=== PATIENT | male | born 1945 | race Caucasian/White ===

== ENCOUNTER 2017-01-11 11:22 | Emergency (ER) | payer OTHER ==
[2017-01-11 11:46] VITALS: RESP 18; TEMP 97.7
--- NOTE | 2017-01-11 12:25 | EDPHY ---
H & P Stated Complaint: RIGHT CALF PAIN FOR 3 DAYS, NO TRAUMA Time Seen by Provider: 01/11/17 11:26 HPI/ROS: CHIEF COMPLAINT: Calf pain HISTORY OF PRESENT ILLNESS: This is a 71-year-old male with a 2 day history of right calf pain. He injured his right knee 1 week ago while hiking. He was crossing a stream and twisted his right knee. He had medial knee pain and subsequent swelling. The pain was severe enough that he used crutches for few days last week. All of this has resolved. His right knee is now pain-free. Most of the swelling is gone; there is some residual bruising. However, he has developed right calf pain. He is not sure whether not his calf is swollen because his calves are all was asymmetric (following a left ankle fusion). He denies any recent immobilization or surgery. He has no family history of venous thromboembolism. He denies chest pain or shortness of breath. REVIEW OF SYSTEMS: A ten point review of systems was performed and is negative with the exception of the items mentioned in the HPI. He also describes some recent shoulder cramps. Past medical history: 1. Hypertension 2. Reactive airway disease--uses an inhaler p.r.n. Past surgical history: 1. Left ankle fusion 2. Repair of hiatal hernia Family history: Social history: General Appearance: Alert. Vital signs reviewed. Blood pressure 154/91. Respiratory: Lungs are clear to auscultation; no wheezes, rales, or rhonchi. Cardiovascular: Regular rate and rhythm; no murmur, rub, or gallop. Gastrointestinal: Abdomen is soft and nontender. Skin: Warm and dry, no rashes on exposed skin, normal color. Back: Nontender to palpation over the thoracolumbar spine. No CVAT. Extremities: Calves are asymmetric with the left being smaller than the right. Patient tells me that this is longstanding and is the result of his having had a left ankle fusion about 5 years ago. Right calf is nontender to palpation and compressible. There is old bruising of the medial aspect of the right knee. Small right knee effusion on exam. Full pain active range of motion of his right knee. Pulses: 2+ dorsalis pedis pulses bilaterally. Neurological: Alert and oriented. Moving all four extremities easily and equally. Sensation intact to light touch over lower extremities. Psychiatric: Normal affect. - Medical/Surgical History Hx Asthma: Yes Other PMH: HTN, ASTHMA, HERNIA REPAIR - Social History Smoking Status: Never smoked Constitutional: Initial Vital Signs Temperature (C) 36.5 C 01/11/17 11:44 Heart Rate 73 01/11/17 11:44 Respiratory Rate 18 01/11/17 11:44 Blood Pressure 154/91 H 01/11/17 11:44 O2 Sat (%) 96 01/11/17 11:44 O2 Delivery Mode Room Air Allergies/Adverse Reactions: No Known Allergies Allergy (Unverified 01/11/17 11:43) Home Medications: Medication Instructions Recorded Albuterol 01/11/17 Eye Drops 01/11/17 Losartan Potassium 01/11/17 Medical Decision Making - Diagnostics Imaging Results: Imaging Impressions Extremity Venous Study 01/11/17 11:42 Impression: 1. No evidence of deep vein thrombosis. 2. Small complex Gonzalez's cyst. Findings discussed with BART BARCENAS 01/11/2017 at 12:22. ED Course/Re-evaluation: Nothing on exam to suggest infection or cellulitis. He does not have knee pain or instability at this time. Ultrasound of the right leg was performed. It was reported to me by Dr. Urena. There is no DVT. There is a small Gonzalez's cyst. No evidence of rupture but it is certainly possible that he did rupture this earlier and had some fluid tracking down into his leg. Departure - Departure Disposition: Home, Routine, Self-Care Clinical Impression: Right calf pain Gonzalez's cyst of knee Qualifiers: Laterality: right Qualified Code(s): M71.21 - Synovial cyst of popliteal space [Gonzalez], right knee Condition: Good Instructions: Bakers Cyst (ED) Additional Instructions: I do not know that the Gonzalez's cyst is causing your pain today. However, there is no evidence of a blood clot in your right leg. I recommend symptomatic treatment with Tylenol and ibuprofen. Ice and elevation may also be helpful. If you develop pain behind her knee you might try a compression wrap. Let your doctor know if you are having pain behind the knee. Pain & Fever Control: We recommend Acetaminophen (Tylenol) and Ibuprofen (Motrin,Advil) for pain and fever control. When fever is high or pain severe, both drugs can be used at the same time, but at different intervals. Please note the time differences. Your dose is: Acetaminophen 650mg every 4 to 6 hours Ibuprofen 400mg every 8 hours with food OR Note: do not take Acetaminophen with Hydrocodone (Vicodin, Lortab) or Oycodone (Percocet). These medications also contain Acetaminophen. No more than 3000mg of Acetaminophen should be taken in 24 hours (for an adult). Referrals: Luis Jeong MD [Primary Care Provider] - As per Instructions
[2017-01-11 12:47] VITALS: BP 142/98; PULSE 75; O2SAT 95
== END 2017-01-11 12:47 | disposition home or self-care (01) ==
LOC: CED 11:22
DX: M71.21 Synovial cyst of popliteal space [Baker], right knee (principal); I10 Essential (primary) hypertension; J45.909 Unspecified asthma, uncomplicated
CPT/HCPCS: 93971-PO

== ENCOUNTER 2017-04-26 17:36 | Inpatient (IN) | payer OTHER ==
[2017-04-26] MEDS ORDERED: NS 1,000 ML IV ONE (17:39)
--- NOTE | 2017-04-26 17:47 | CPEKG ---
Heart Rate: 60 RR Interval: 1000 P-R Interval: 160 QRSD Interval: 82 QT Interval: 456 QTC Interval: 456 P [place]: 58 QRS [place]: 33 T Wave [place]: -3 EKG Severity - ABNORMAL ECG - EKG Impression: SINUS RHYTHM EKG Impression: PROBABLE INFERIOR INFARCT, AGE INDETERMINATE Electronically Signed By: Raciel Gutierrez 26-Apr-2017 18:51:36
[2017-04-26 17:52] LABS: PLATELET COUNT 243 10^3/uL (150-400)
[2017-04-26] MEDS ORDERED: ASPIRIN 81 MG CHEWABLE TAB PO ONE (17:59)
--- NOTE | 2017-04-26 18:15 | EDPHY ---
H & P Stated Complaint: syncopal episode, hit head, + LOC Time Seen by Provider: 04/26/17 17:45 HPI/ROS: This patient reports onset of nausea at home and an episode of syncope. Explains that while working at his computer he started feeling nauseous. He stood up to walk the living room and did not make it all the way to the couch instead having a syncopal episode and landing on the floor striking his head. His was in the kitchen and heard him fall running to his side he was initially unconscious and she estimates that he was unconscious for 30-60 seconds prior to awakening and regaining on normal mental status and short order. He reports resolution of his nausea. Patient's was able to walk come to their car and drive him here by private vehicle for further evaluation. He reports a 1/10 headache that is generalized from striking his head. He reports associated left lateral neck pain in the trapezius region the attributes to the fall as well. He states this is mild also in intensity. No other symptoms at this time. ROS: Constitutional: He felt well prior to the episode of nausea today. No recent fevers. No recent fatigue. HEENT: He denies any facial pain except for mild left zygoma pain. Musculoskeletal: No midline neck or back pain. No extremity injuries from the fall. Pulmonary: No shortness of breath. No coughing Cardiovascular: He did notice any heart palpitations prior to the episode of syncope. He reports no chest pain. He denies any recent calf swelling or leg pain. GI: No abdominal pain. Nausea has resolved. No vomiting. No diarrhea. : The patient reports mild difficulty passing urine chronically and suspects that he may have prostatic hypertrophy. Integumentary: No lacerations abrasions Neuro: No confusion. No focal numbness tingling or weakness except for mild tingling in the scalp with his head where he struck his head. Endocrine: No complaints Complete review of symptoms is otherwise negative. Source: Patient Exam Limitations: No limitations - Personal History Current Tetanus/Diphtheria Vaccine: Yes Current Tetanus Diphtheria and Acellular Pertussis (TDAP): Yes Tetanus Vaccine Date: < 10 years - Medical/Surgical History PMH: Hypertension Mild asthma Recent sinusitis - finished z-pack a few days ago w/ resolution of sx's Coronary artery disease risk factors: Father prematurely from a cardiac event, hypertension, unknown cholesterol status, believes he had a abnormal stress test within last year [facility]. Hx Asthma: Yes Hx Chronic Respiratory Disease: No Hx Diabetes: No Hx Cardiac Disease: Yes Hx Renal Disease: No Hx Cirrhosis: No Hx Alcoholism: No Hx HIV/AIDS: No Hx Splenectomy or Spleen Trauma: No Other PMH: HTN, ASTHMA, HERNIA REPAIR, glaucoma - Family History Significant Family History: Heart disease (Patient's father of a cardiac event at age 41. Patient was told was due to rheumatic heart disease.) - Social History Smoking Status: Never smoked Alcohol Use: Other (1-2 glasses of wine most nights.) Drug Use: None - Physical Exam Exam: General Appearance: Alert, no distress. Eyes: Pupils equal and round no pallor or injection. ENT, the patient has mild left parietal region tenderness with no underlying laceration or hematoma. Mouth: Atraumatic with no intraoral lacerations. No dental trauma. Mucous membranes moist. Mild left zygoma tenderness without deformity. Neck: No midline tenderness. He has mild left lateral trapezius tenderness. Respiratory: There are no retractions, lungs are clear to auscultation. Cardiovascular: Regular rate and rhythm. No murmur gallop or rub. No JVD. No peripheral edema. Gastrointestinal: Abdomen is soft and nontender, no masses, bowel sounds normal. Neurological: GCS 15. Cranial nerves 2-12 intact. No focal sensory or motor deficits are appreciated. Skin: Warm and dry, no rashes. Musculoskeletal: Neck is supple nontender. Extremities are symmetrical, full range of motion. Psychiatric: Mood and affect are normal. DIFFERENTIAL DIAGNOSIS: After history and physical exam differential diagnosis was considered for cardiac ischemic disease, dysrhythmia, sick sinus syndrome, dehydration, minor closed head injury, neck strain, Constitutional: Initial Vital Signs Temperature (C) 36.5 C 04/26/17 17:44 Heart Rate 69 04/26/17 17:44 Respiratory Rate 20 04/26/17 17:44 Blood Pressure 167/121 H 04/26/17 17:44 O2 Sat (%) 92 04/26/17 17:44 O2 Delivery Mode Nasal Cannula O2 (L/minute) 3 Allergies/Adverse Reactions: No Known Allergies Allergy (Verified 04/26/17 17:44) Home Medications: Medication Instructions Recorded Albuterol 01/11/17 Eye Drops 01/11/17 Losartan Potassium 01/11/17 Medical Decision Making - Diagnostics EKG Interpretation: 12 lead EKG performed at 5:45 p.m. indication syncope rule out dysrhythmia, mi or other Sinus rhythm at 60 Intervals: Normal throughout [place]: P of 50, QRS of 33, T of -3 ST segments: Patient has mild ST depression in leads 3 and AVF. Borderline Q-wave inferiorly Overall assessment sinus rhythm cannot rule out inferior ischemia or age indeterminate infarct. Repeat EKG performed at 6:27 p.m. indication rule out interval change sinus rhythm at 65 intervals: Normal axis: Normal ST segments : Unchanged ED Course/Re-evaluation: IV, monitor Normal saline bolus No chest pain or nausea while here. Discussion: 71-year-old male with history of nausea and syncope with subtle EKG abnormalities in inferior leads. Cannot rule out inferior ischemia or early infarct in this patient. He warrants admission for further observation and rule out. I counseled regarding this. While he did strike his head in the fall he does not have clinical evidence of intercerebral hemorrhage, skull fracture or mental status change currently. His neck discomfort is consistent with neck strain. No clinical evidence of bony injury or radiculopathy. At approximately 1904 the patient had a long pause on his rhythm strip (approx 10s.) followed by sinus bradycardia in the 40s resulting in a brief syncope while reclining in the bed. Pacer pads were placed and atropine to the bedside , but patient regained consciousness with heart rate initially in the 50s shortly thereafter. The episode then resolved without other medical intervention. A repeat EKG is ordered. Dr. Bro [facility] called about this time accepts the patient for transfer For the rest of the duration of his time in our emergency department the patient remained stable without further pauses or other ectopy. I also spoke with Dr. Delaney who requests the patient be NPO after midnight as he will likely require a pacemaker. Total bedside critical care time: 15 min - Data Points Laboratory Results: Laboratory Results 04/26/17 17:42 04/26/17 17:42 04/26/17 04/26/17 04/26/17 18:40 17:42 17:42 WBC 8.13 10^3/uL 10^3/uL (3.80-9.50) RBC 4.86 10^6/uL 10^6/uL (4.40-6.38) Hgb 14.8 g/dL g/dL (13.7-17.5) Hct 44.4 % % (40.0-51.0) MCV 91.4 fL fL (81.5-99.8) MCH 30.5 pg pg (27.9-34.1) MCHC 33.3 g/dL g/dL (32.4-36.7) RDW 12.4 % % (11.5-15.2) Plt Count 243 10^3/uL 10^3/uL (150-400) MPV 9.7 fL fL (8.7-11.7) Neut % (Auto) 66.2 % % (39.3-74.2) Lymph % (Auto) 21.2 % % (15.0-45.0) [place] % (Auto) 7.9 % % (4.5-13.0) Eos % (Auto) 3.0 % % (0.6-7.6) Baso % (Auto) 0.6 % % (0.3-1.7) Nucleat RBC Rel Count 0.0 % % (0.0-0.2) Absolute Neuts (auto) 5.39 10^3/uL 10^3/uL (1.70-6.50) Absolute Lymphs (auto) 1.72 10^3/uL 10^3/uL (1.00-3.00) Absolute Monos (auto) 0.64 10^3/uL 10^3/uL (0.30-0.80) Absolute Eos (auto) 0.24 10^3/uL 10^3/uL (0.03-0.40) Absolute Basos (auto) 0.05 10^3/uL 10^3/uL (0.02-0.10) Absolute Nucleated RBC 0.00 10^3/uL 10^3/uL (0-0.01) Immature Gran % 1.1 % % (0.0-1.1) Immature Gran # 0.09 10^3/uL 10^3/uL (0.00-0.10) Sodium 141 mEq/L mEq/L (135-145) Potassium 4.4 mEq/L mEq/L (3.5-5.2) Chloride 103 mEq/L mEq/L (97-110) Carbon Dioxide 26 mEq/l mEq/l (22-31) Anion Gap 12 mEq/L mEq/L (8-16) BUN 23 mg/dL mg/dL (7-23) Creatinine 1.1 mg/dL mg/dL (0.7-1.3) Estimated GFR > 60 Glucose 97 mg/dL mg/dL (70-100) Calcium 9.0 mg/dL mg/dL (8.5-10.4) Troponin I < 0.012 ng/mL ng/mL (0.000-0.034) Urine Color YELLOW Urine Appearance CLEAR Urine pH 6.0 (5.0-7.5) Ur Specific [place] 1.025 (1.002-1.030) Urine Protein NEGATIVE (NEGATIVE) Urine Ketones NEGATIVE (NEGATIVE) Urine Blood NEGATIVE (NEGATIVE) Urine Nitrate NEGATIVE (NEGATIVE) Urine Bilirubin NEGATIVE (NEGATIVE) Urine Urobilinogen 0.2 EU EU (0.2-1.0) Ur Leukocyte Esterase NEGATIVE (NEGATIVE) Urine Glucose NEGATIVE (NEGATIVE) Medications Given: Discontinued Medications Aspirin (Aspirin) 324 mg PO EDNOW ONE Stop: 04/26/17 18:00 Last Admin: 04/26/17 18:03 Dose: 324 mg Sodium Chloride (Ns) 1,000 mls @ 0 mls/hr IV EDNOW ONE; Wide Open PRN Reason: Protocol Stop: 04/26/17 17:40 Last Admin: 04/26/17 17:51 Dose: 1,000 mls Departure - Departure Disposition: [facility] Clinical Impression: EKG abnormality Minor head injury Qualifiers: Encounter type: initial encounter Qualified Code(s): S00.90XA - Unspecified superficial injury of unspecified part of head, initial encounter Neck muscle strain Qualifiers: Encounter type: initial encounter Qualified Code(s): S16.1XXA - Strain of muscle, fascia and tendon at neck level, initial encounter Syncope Qualifiers: Syncope type: unspecified Qualified Code(s): R55 - Syncope and collapse Clinical Impression: (Ruled Out): EKG abnormality (Q-T prolongation present at ) Condition: Fair
--- NOTE | 2017-04-26 18:28 | CPEKG ---
Heart Rate: 65 RR Interval: 923 P-R Interval: 172 QRSD Interval: 84 QT Interval: 452 QTC Interval: 470 P [place]: 49 QRS [place]: 18 T Wave [place]: -12 EKG Severity - ABNORMAL ECG - EKG Impression: SINUS RHYTHM EKG Impression: PROBABLE INFERIOR INFARCT, AGE INDETERMINATE Electronically Signed By: Raciel Gutierrez 26-Apr-2017 18:51:25
[2017-04-26] MEDS ORDERED: ONDANSETRON DISINTEGRATING 4 MG TAB PO PRN (22:35)
[2017-04-26] MEDS ORDERED: ACETAMINOPHEN 325 MG TAB PO PRN (22:35)
[2017-04-26] MEDS: ONDANSETRON 4 MG/2 ML VIAL IVP PRN (23:49)
--- NOTE | 2017-04-26 23:50 | CPEKG ---
Heart Rate: 63 RR Interval: 952 P-R Interval: 180 QRSD Interval: 84 QT Interval: 484 QTC Interval: 496 P [place]: 50 QRS [place]: 32 T Wave [place]: -5 EKG Severity - ABNORMAL ECG - EKG Impression: Sinus rhythm Electronically Signed By: Geoffrey Delaney 27-Apr-2017 07:27:35
--- NOTE | 2017-04-26 23:52 | PDGENHP ---
History and Physical - Chief Complaint Syncope - History of Present Illness 71 yo M w/ HTN presents after episode of syncope. He explains he was at home working on his computer when he began to feel nauseous. He stood up and then had a syncopal episode. His came to side and states he was unresponsive for 30-60 seconds. He denies any chest pain or shortness of breath preceding this episode. He recently finished a course of azithromycin for sinus infection but otherwise has been in his usual state of health. Once in the ED he was noted to have a 10 second sinus pause on the monitor and recurrent syncope. He did not require atropine or other interventions. At the time of my evaluation he is asymptomatic. History Information - Allergies/Home Medication List Allergies/Adverse Reactions: No Known Allergies Allergy (Verified 04/26/17 17:44) Home Medications: Albuterol 01/11/17 [Last Taken Unknown] Eye Drops 01/11/17 [Last Taken Unknown] Losartan Potassium 01/11/17 [Last Taken Unknown] I have personally reviewed and updated: family history, medical history - Past Medical History hypertension - Surgical History Reports: no pertinent surgical hx - Family History Positive for: cancer - Social History Smoking Status: Never smoked Alcohol Use: Other (1-2 glasses of wine most nights.) Drug Use: None Review of Systems Review of Systems: ROS: 10pt was reviewed & negative except for what was stated in HPI & below Physical Exam Physical Exam: Temp Pulse Resp BP Pulse Ox 36.4 C 76 13 163/87 H 96 04/26/17 22:15 04/26/17 22:15 04/26/17 22:15 04/26/17 22:15 04/26/17 22:15 O2 (L/minute) 2 Constitutional: no apparent distress, not in pain Eyes: PERRL, EOMI Ears, Nose, Mouth, Throat: moist mucous membranes, no oral mucosal ulcers Cardiovascular: regular rate and rhythym, no murmur, rub, or gallop Respiratory: no respiratory distress, no rales or rhonchi Genitourinary: no bladder fullness, no bladder tenderness Skin: warm, normal color Musculoskeletal: full muscle strength, no muscle tenderness Neurologic: AAOx3, CN II-XII Intact Psychiatric: interacting appropriately, not anxious Lab Data & Imaging Review 04/26/17 17:42 04/26/17 17:42 WBC 8.13 10^3/uL (3.80-9.50) 04/26/17 17:42 RBC 4.86 10^6/uL (4.40-6.38) 04/26/17 17:42 Hgb 14.8 g/dL (13.7-17.5) 04/26/17 17:42 Hct 44.4 % (40.0-51.0) 04/26/17 17:42 MCV 91.4 fL (81.5-99.8) 04/26/17 17:42 MCH 30.5 pg (27.9-34.1) 04/26/17 17:42 MCHC 33.3 g/dL (32.4-36.7) 04/26/17 17:42 RDW 12.4 % (11.5-15.2) 04/26/17 17:42 Plt Count 243 10^3/uL (150-400) 04/26/17 17:42 MPV 9.7 fL (8.7-11.7) 04/26/17 17:42 Neut % (Auto) 66.2 % (39.3-74.2) 04/26/17 17:42 Lymph % (Auto) 21.2 % (15.0-45.0) 04/26/17 17:42 [place] % (Auto) 7.9 % (4.5-13.0) 04/26/17 17:42 Eos % (Auto) 3.0 % (0.6-7.6) 04/26/17 17:42 Baso % (Auto) 0.6 % (0.3-1.7) 04/26/17 17:42 Nucleat RBC Rel Count 0.0 % (0.0-0.2) 04/26/17 17:42 Absolute Neuts (auto) 5.39 10^3/uL (1.70-6.50) 04/26/17 17:42 Absolute Lymphs (auto) 1.72 10^3/uL (1.00-3.00) 04/26/17 17:42 Absolute Monos (auto) 0.64 10^3/uL (0.30-0.80) 04/26/17 17:42 Absolute Eos (auto) 0.24 10^3/uL (0.03-0.40) 04/26/17 17:42 Absolute Basos (auto) 0.05 10^3/uL (0.02-0.10) 04/26/17 17:42 Absolute Nucleated RBC 0.00 10^3/uL (0-0.01) 04/26/17 17:42 Immature Gran % 1.1 % (0.0-1.1) 04/26/17 17:42 Immature Gran # 0.09 10^3/uL (0.00-0.10) 04/26/17 17:42 Sodium 141 mEq/L (135-145) 04/26/17 17:42 Potassium 4.4 mEq/L (3.5-5.2) 04/26/17 17:42 Chloride 103 mEq/L (97-110) 04/26/17 17:42 Carbon Dioxide 26 mEq/l (22-31) 04/26/17 17:42 Anion Gap 12 mEq/L (8-16) 04/26/17 17:42 BUN 23 mg/dL (7-23) 04/26/17 17:42 Creatinine 1.1 mg/dL (0.7-1.3) 04/26/17 17:42 Estimated GFR > 60 04/26/17 17:42 Glucose 97 mg/dL (70-100) 04/26/17 17:42 Calcium 9.0 mg/dL (8.5-10.4) 04/26/17 17:42 Troponin I < 0.012 ng/mL (0.000-0.034) 04/26/17 17:42 Urine Color YELLOW 04/26/17 18:40 Urine Appearance CLEAR 04/26/17 18:40 Urine pH 6.0 (5.0-7.5) 04/26/17 18:40 Ur Specific [place] 1.025 (1.002-1.030) 04/26/17 18:40 Urine Protein NEGATIVE (NEGATIVE) 04/26/17 18:40 Urine Ketones NEGATIVE (NEGATIVE) 04/26/17 18:40 Urine Blood NEGATIVE (NEGATIVE) 04/26/17 18:40 Urine Nitrate NEGATIVE (NEGATIVE) 04/26/17 18:40 Urine Bilirubin NEGATIVE (NEGATIVE) 04/26/17 18:40 Urine Urobilinogen 0.2 EU (0.2-1.0) 04/26/17 18:40 Ur Leukocyte Esterase NEGATIVE (NEGATIVE) 04/26/17 18:40 Urine Glucose NEGATIVE (NEGATIVE) 04/26/17 18:40 Visualized and Interpreted EKG results: Yes EKG Interpretation: Positive for: normal sinsus rhythm, other (Inferior Q waves) Assessment & Plan Assessment: 71 yo M w/ hx of HTN presents with episode of syncope likely from bradyarrhythmia. Plan: 1. Syncope - Most likely 2/2 bradyarrhythmia. 10 second sinus pause noted on the monitor while in the ED with recurrent symptoms. Patient is currently asymptomatic and hemodynamically stable. Initial ischemic work-up unremarkable. He does have inferior Q waves on his ECG but no prior documented history of NH. - Trend cardiac enzymes, monitor on telemetry - Echocardiogram ordered - Cardiology consult placed, NPO @ [place] for possible pacemaker tomorrow 2. Hypertension - On Losartan as an outpatient. Diet - NPO @ [place] Code - Full PPx - SCDs Dispo - Admit to SDU under observation status
[2017-04-27] MEDS ORDERED: ATROPINE SULFATE 1 MG/10 ML SYR ONE (00:06)
[2017-04-27] MEDS ORDERED: ATROPINE SULFATE 1 MG/ML VIAL IVP ONE (01:00)
[2017-04-27 05:13] LABS: PLATELET COUNT 224 10^3/uL (150-400)
[2017-04-27] MEDS: ONDANSETRON 4 MG/2 ML VIAL IVP PRN (06:44)
[2017-04-27] MEDS ORDERED: BACITRACIN IRRIGATION/NS 50,000 UNITS/1,000 ML BTL IRR ONE ×2 (06:45→10:00)
[2017-04-27] MEDS ORDERED: BUPIVACAINE 0.5% 30 ML SDV ONE ×2 (06:45→09:52)
[2017-04-27] MEDS ORDERED: LIDOCAINE 1% 300 MG/30 ML SDV ONE ×2 (06:45→09:52)
[2017-04-27] MEDS ORDERED: IOPAMIDOL (ISOVUE-300) 100 ML BTL ONE (06:45)
[2017-04-27] MEDS ORDERED: ceFAZolin 2 GM/SWFI 2 GM/20 ML SYR IVP ONE (07:00)
--- NOTE | 2017-04-27 07:01 | PDPROPOC ---
Sedation Plan of Care Sedation Plan of Care: vital signs stable, mental status noted, patient educated of risks, benefits, alternatives, patient can tolerate sedation ASA Classification: ASA 2 Planned drugs: fentanyl, midazolam Mallampati Score: Class 2 Mallampati Reference Image: Patient passed 3-3-2 rule?: Yes
--- NOTE | 2017-04-27 07:02 | PDHPUP ---
History & Physical Update H&P update statement: This history and physical update is based on an assessment of the patient which was completed after admission or registration (within 24 hours), but prior to the surgery/procedure. H&P update: H&P reviewed & patient examined, no change in patient's condition since H&P completed (Risks of PM implant reviewed with patient and . ECG, echo, labs do not suggest acute [place]. )
--- NOTE | 2017-04-27 07:17 | PDCARCONS ---
Cardiology Consult Reason for Consult: Syncope Chief Complaint: Syncope Requesting Physician: Hospitalist team and emergency department physician History of Present Illness: 71-year-old male who presented with an episode of syncope at home yesterday. He was in [facility] and had 10 seconds of sinus arrest. He was transferred to [facility], and around midnight at 2 further episodes of sinus arrest. Atropine, low-dose dopamine and transcutaneous pacing was initiated and he has not had any further pauses. Throughout these episodes, he denies any episodes of chest discomfort and has remained hemodynamically stable in between episodes of syncope and sinus arrest. He feels nauseous prior to and after episodes of syncope followed by bradycardia and sinus arrest. History Information - Allergies/Home Medication List Allergies/Adverse Reactions: No Known Allergies Allergy (Verified 04/26/17 17:44) Home Medications: Albuterol 01/11/17 [Last Taken Unknown] Eye Drops 01/11/17 [Last Taken Unknown] Losartan Potassium 01/11/17 [Last Taken Unknown] I have personally reviewed and updated: family history, medical history, social history Past Medical History: Hypertension, glaucoma, BPH - Social History Smoking Status: Never smoked Alcohol Use: Other (1-2 glasses of wine most nights.) Drug Use: None Physical Exam Physical Exam: Temp Pulse Resp BP Pulse Ox 36.6 C 73 15 151/77 H 96 04/27/17 06:30 04/27/17 06:30 04/27/17 06:30 04/27/17 06:30 04/27/17 06:30 O2 (L/minute) 3 Constitutional: no apparent distress Eyes: PERRL, EOMI Ears, Nose, Mouth, Throat: moist mucous membranes, hearing normal Cardiovascular: regular rate and rhythym, no murmur, rub, or gallop Respiratory: no respiratory distress, no rales or rhonchi Gastrointestinal: normoactive bowel sounds, soft, non-tender abdomen Neurologic: AAOx3 Psychiatric: interacting appropriately, not anxious, not encephalopathic, thought process linear Lab and Imaging 04/27/17 05:00 04/27/17 05:00 WBC 9.62 10^3/uL (3.80-9.50) H 04/27/17 05:00 RBC 4.70 10^6/uL (4.40-6.38) 04/27/17 05:00 Hgb 14.7 g/dL (13.7-17.5) 04/27/17 05:00 Hct 42.7 % (40.0-51.0) 04/27/17 05:00 MCV 90.9 fL (81.5-99.8) 04/27/17 05:00 MCH 31.3 pg (27.9-34.1) 04/27/17 05:00 MCHC 34.4 g/dL (32.4-36.7) 04/27/17 05:00 RDW 12.3 % (11.5-15.2) 04/27/17 05:00 Plt Count 224 10^3/uL (150-400) 04/27/17 05:00 MPV 9.7 fL (8.7-11.7) 04/27/17 05:00 Neut % (Auto) 83.9 % (39.3-74.2) H 04/27/17 05:00 Lymph % (Auto) 9.5 % (15.0-45.0) L 04/27/17 05:00 [place] % (Auto) 4.7 % (4.5-13.0) 04/27/17 05:00 Eos % (Auto) 0.7 % (0.6-7.6) 04/27/17 05:00 Baso % (Auto) 0.3 % (0.3-1.7) 04/27/17 05:00 Nucleat RBC Rel Count 0.0 % (0.0-0.2) 04/27/17 05:00 Absolute Neuts (auto) 8.07 10^3/uL (1.70-6.50) H 04/27/17 05:00 Absolute Lymphs (auto) 0.91 10^3/uL (1.00-3.00) L 04/27/17 05:00 Absolute Monos (auto) 0.45 10^3/uL (0.30-0.80) 04/27/17 05:00 Absolute Eos (auto) 0.07 10^3/uL (0.03-0.40) 04/27/17 05:00 Absolute Basos (auto) 0.03 10^3/uL (0.02-0.10) 04/27/17 05:00 Absolute Nucleated RBC 0.00 10^3/uL (0-0.01) 04/27/17 05:00 Immature Gran % 0.9 % (0.0-1.1) 04/27/17 05:00 Immature Gran # 0.09 10^3/uL (0.00-0.10) 04/27/17 05:00 Sodium 142 mEq/L (135-145) 04/27/17 05:00 Potassium 4.3 mEq/L (3.5-5.2) 04/27/17 05:00 Chloride 109 mEq/L (97-110) 04/27/17 05:00 Carbon Dioxide 24 mEq/l (22-31) 04/27/17 05:00 Anion Gap 9 mEq/L (8-16) 04/27/17 05:00 BUN 19 mg/dL (7-23) 04/27/17 05:00 Creatinine 0.9 mg/dL (0.7-1.3) 04/27/17 05:00 Estimated GFR > 60 04/27/17 05:00 Glucose 119 mg/dL (70-100) H 04/27/17 05:00 Calcium 9.0 mg/dL (8.5-10.4) 04/27/17 05:00 Phosphorus 3.5 mg/dL (2.5-4.5) 04/27/17 05:00 Magnesium 2.0 mg/dL (1.6-2.3) 04/27/17 05:00 Troponin I < 0.012 ng/mL (0.000-0.034) 04/27/17 05:00 Urine Color YELLOW 04/26/17 18:40 Urine Appearance CLEAR 04/26/17 18:40 Urine pH 6.0 (5.0-7.5) 04/26/17 18:40 Ur Specific [place] 1.025 (1.002-1.030) 04/26/17 18:40 Urine Protein NEGATIVE (NEGATIVE) 04/26/17 18:40 Urine Ketones NEGATIVE (NEGATIVE) 04/26/17 18:40 Urine Blood NEGATIVE (NEGATIVE) 04/26/17 18:40 Urine Nitrate NEGATIVE (NEGATIVE) 04/26/17 18:40 Urine Bilirubin NEGATIVE (NEGATIVE) 04/26/17 18:40 Urine Urobilinogen 0.2 EU (0.2-1.0) 04/26/17 18:40 Ur Leukocyte Esterase NEGATIVE (NEGATIVE) 04/26/17 18:40 Urine Glucose NEGATIVE (NEGATIVE) 04/26/17 18:40 Visualized and Interpreted EKG results: Yes Telemetry: Sinus arrest with ventricular escape rhythm noted, this is preceded by bradycardia A/P Assessment: 1. Sinus arrest 2. Syncope 3. Hypertension Plan: 71-year-old male presenting with sinus arrest and syncope. Etiology of this is not clear. 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 He was managed with atropine, dopamine and transcutaneous pacing Permanent pacemaker implantation is indicated, this is class 1 indication. Risks of the procedure including cardiac perforation, pneumothorax, DVT, pulmonary embolism, infection, bleeding, long-term complications like SVC syndrome, infection, future need for generator change and lead extraction were discussed with him and his . He has normal EKG at baseline with normal LV function, troponin x2 has been negative, echocardiogram does not show any significant abnormalities. Pacemaker implantation is planned for this morning
[2017-04-27] MEDS ORDERED: fentaNYL 100 MCG/2 ML INJ ONE ×3 (07:19→13:24)
[2017-04-27] MEDS ORDERED: MIDAZOLAM 2 MG/2 ML VIAL ONE ×3 (07:19→13:24)
--- NOTE | 2017-04-27 07:27 | ECHO ---
[email or web address] [place] [id number] Main: [phone] Fax: Transthoracic Echocardiogram Name: ALENA NICHOLAS MR#: [id number] Study Date: 04/27/2017 Study Time: 06:34 AM Date of : 1945 Age: 71 year(s) Height: 188 cm (74 in.) Weight: 98.88 kg (218 lb.) BSA: 2.25 m2 Gender: Male Examination: Echo Indication: Eval LV function Image Quality: Contrast: Requested by: Sven De La Rosa BP: / Heart Rate: Rhythm: Indication: Eval LV function Procedure Staff T[employer] Buffer: Susu Damon Physician: Requesting Provider: Measurements: Chambers Valvular Assessment AV/MV Valvular Assessment TV/PV Normal Normal Normal Name Value Range Name Value Range Name Value Range Ao Kanwal (MM): 3.6 cm (2.2 cm-3.7 AV Vmax: 1.44 m/s (1 m/s-1.7 cm) m/s) EF Range: 65-70 % AV maxP mmHg ( - ) Continued Measurements: Chambers Name Value LADs: 2.8 cm Findings: Left Ventricle: Normal size left ventricle. The ejection fraction is estimated to be 65-70 %. Right Ventricle: Normal size right ventricle. Left Atrium: The left atrium is normal in size. Right Atrium: The right atrium is normal in size. Pulmonic Valve: Pulmonary valve not well visualized. Patient: ALENA NICHOLAS Study Date: 04/27/2017 Page 1 of 2 06:34 AM (No Signature Object) Patient: ALENA NICHOLAS Study Date: 04/27/2017 Page 2 of 2 06:34 AM [id number]
--- NOTE | 2017-04-27 08:16 | CPEKG ---
Heart Rate: 153 RR Interval: 392 QRSD Interval: 128 QTC Interval: 0 P [place]: 0 QRS [place]: 16 EKG Severity - ABNORMAL ECG - EKG Impression: Sinus arrest, ventricular escape followed by sinus beat Preliminary Awaiting MD Review
--- NOTE | 2017-04-27 08:22 | EPPROC ---
Electrophysiology Procedure Note: PROCEDURE PERFORMED: Implantation of an A/V Pacemaker Subclavian vein angiography Fluoroscopy INDICATION: Syncope x 4 Sinus arrest documented on telemetry x 3 PROCEDURE NOTE: Patient presented to the cardiac catheterization laboratory in a fasting, post absorptive state . EP RN administered sedation. The left infraclavicular area was prepped and draped in the usual sterile fashion. Lidocaine plus bupivacaine was used for local anesthesia. Left subclavian venography was performed by injection of iodinated contrast into the left antecubital vein. This was done to assure patency of the vein and also to assess for any anatomical aberrations. Using a combination of blunt and sharp dissection and electrocautery, the dissection was carried down to the prepectoral fascia. A pocket was made in this anatomical plane. All bleeding was controlled with electrocautery. The pocket was packed with gauze soaked in antibiotic solution. Fluoroscopy was utilized during the entire procedure for venous access and placement of the leads. Using a direct stick technique the left extrathoracic axillary vein was accessed with 2 sticks using the modified Seldinger technique. Placement of the guidewires into the venous system was confirmed by low-pressure blood return and also by visualizing the guidewires advancing into the inferior vena cava. A purse string suture was applied around the guidewires. Two #7 [place] sheaths were advanced under fluoroscopic guidance over the guidewire. An active fixation ventricular lead was advanced into the right ventricular apex and screwed in place. An active fixation atrial lead was advanced into the right atrial appendage and screwed in place. The peel away sheaths were removed. Pacing thresholds, sensing parameters and lead impedances were measured. There was no diaphragmatic stimulation at maximum output. The leads were sutured to the prepectoral fascia with 3 nonabsorbable sutures each. The pocket was again inspected for any bleeding. The leads were attached to the pacemaker securely. The pacemaker was inserted into the pocket and secured in place with a nonabsorbable suture. Fluoroscopy was performed in WEBSTER and BECKY planes to verify right-sided placement of the leads. Also fluoroscopy of the pacemaker pocket was performed. The pacemaker pocket was closed in 3 layers with absorbable monocryl sutures and raudel. Appropriate dressing was applied. The patient left the cardiac catheterization laboratory in stable condition. Serial Numbers: Device: Biotronik Edora 8DRT SN [id number] Atrial Lead: BiotronikSolia S53 SN [id number] Ventricular Lead: Biotronik Solia S 58 SN [id number] Stimulation Thresholds & Impedance Measurements: Atrial Lead P 4.4 mV 1 V 0.4 ms 487 ohm Ventricular Lead R 7.7 mV 0.6 V 0.4 ms 682 ohm Sina Pacing Parameters Pacing mode: DDD CLS Lower rate: 60ppm Upper tracking rate: 130 ppm Upper sensor rate: 130 ppm Patient Problems: Problems Problem Status Onset Syncope Acute EKG abnormality Acute Minor head injury Acute Neck muscle strain Acute
--- NOTE | 2017-04-27 08:54 | CPEKG ---
Heart Rate: 73 RR Interval: 822 P-R Interval: 168 QRSD Interval: 82 QT Interval: 456 QTC Interval: 503 P [place]: 59 QRS [place]: 44 T Wave [place]: -9 EKG Severity - ABNORMAL ECG - EKG Impression: PACEMAKER SPIKES OR ARTIFACTS EKG Impression: SINUS RHYTHM EKG Impression: PROBABLE INFERIOR INFARCT, AGE INDETERMINATE Electronically Signed By: Lv Sage 27-Apr-2017 15:21:40
[2017-04-27] MEDS ORDERED: methylPREDNISolone SOD SUCC 125 MG/2 ML VIAL ONE (09:02)
[2017-04-27] MEDS ORDERED: EPINEPHrine 1 MG/10 ML SYR IVP ONE (09:07)
[2017-04-27] MEDS ORDERED: FAMOTIDINE 20 MG/NACL/50 ML BAG IV ONE (09:10)
[2017-04-27] MEDS ORDERED: FAMOTIDINE 20 MG/NACL 50 ML IV ONE (09:30)
[2017-04-27] MEDS ORDERED: EPINEPHrine RACEMIC INH 0.5 ML DEYVIAL IH ONE (09:30)
[2017-04-27] MEDS ORDERED: VANCOMYCIN HCL/NORMAL SALINE 250 ML IV ONE (10:00)
--- NOTE | 2017-04-27 12:23 | ASMTCASEMG ---
Living Arrangements What is your living Answers: With Spouse arrangement? Who do you live with? Type Of Residence What kind of residence do Answers: House you live in? 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 He was admitted for bradyarrhythmia, cardiology consult, and hypertension. SPL has been ordered. Patient will most likely d/c independently. CM available for any d/c needs that may arise. Date Signed: 04/27/2017 12:22 PM Electronically Signed By:Sofia Fox LCSW
--- NOTE | 2017-04-27 14:39 | HOSPPROG ---
Hospitalist Progress Note Assessment/Plan: Assessment: 71 yo M w/ hx of HTN presents with episode of syncope due to sinus arrest #. Sinus arrest status post pacemaker placement requiring return to operating room due to atrial lead displacement #. Resolved showed a anaphylaxis possibly due to iodine #. History of Hypertension Diet - NPO @ [place] Code - Full PPx - SCDs Dispo - change to inpatient status will need close monitoring in SDU given episode of anaphylaxis Subjective: Patient seen in PACU. Resting comfotably. Does not appear to be in distress Objective: Vital Signs Temp Pulse Resp BP Pulse Ox 36.6 C 73 15 151/77 H 96 04/27/17 06:30 04/27/17 06:30 04/27/17 06:30 04/27/17 06:30 04/27/17 06:30 Laboratory Results 04/27/17 05:00 04/27/17 05:00 04/26/17 04/27/17 04/28/17 05:59 05:59 05:59 Intake Total 1341.1 300 Output Total 1750 850 Balance -408.9 -550 - Physical Exam Constitutional: no apparent distress Cardiovascular: regular rate and rhythym, no murmur, rub, or gallop, other (ppm left chest) Respiratory: no respiratory distress, no rales or rhonchi, clear to auscultation Skin: no rashes or abrasions, no fluctuance, no induration ICD10 Worksheet Patient Problems: Problems Problem Status Onset Syncope Acute EKG abnormality Acute Minor head injury Acute Neck muscle strain Acute
--- NOTE | 2017-04-27 15:46 | PDMN ---
Medical Necessity Medical necessity: change to IP; los>2mn for sinus arrest x3, s/p PPM w/ return to procedure room for displaced atrial lead; episode of anaphylaxis possibly r/t iodine; requires close monitoring in ICU/SDU; per order and progress note 04/27/17
[2017-04-27] MEDS ORDERED: ALBUTEROL 3 ML DEYVIAL ONE (17:28)
[2017-04-27] MEDS ORDERED: ALBUTEROL 60 PUFFS/8 GM MDI IH PRN (17:43)
[2017-04-27] MEDS ORDERED: ALBUTEROL 3 ML DEYVIAL IH ONE (18:00)
[2017-04-27] MEDS ORDERED: TAMSULOSIN HCL 0.4 MG CAP PO SCH (21:00)
[2017-04-28 06:01] LABS: PLATELET COUNT 227 10^3/uL (150-400)
[2017-04-28 08:12] VITALS: BP 144/76; PULSE 80; RESP 16; TEMP 98.7; O2SAT 97
[2017-04-28] MEDS ORDERED: FLUTICASONE HFA 110 MCG MDI IH PRN (09:01)
--- NOTE | 2017-04-28 09:03 | HOSPPROG ---
Hospitalist Progress Note Assessment/Plan: #Sinus arrest: pacer placed 04/27 #Syncope: due to above #Leukocytosis: suspect stress response. Afebrile. Negative UA, CXR #DC today. Strict precaution provided for arm Subjective: no CP Objective: Vital Signs Temp Pulse Resp BP Pulse Ox 37.1 C 80 16 144/76 H 97 04/28/17 08:00 04/28/17 08:00 04/28/17 08:00 04/28/17 08:00 04/28/17 08:00 Laboratory Results 04/28/17 05:20 04/28/17 05:20 04/27/17 04/28/17 04/29/17 05:59 05:59 05:59 Intake Total 250 Output Total 1300 Balance -1050 - Physical Exam Constitutional: no apparent distress Eyes: PERRL Ears, Nose, Mouth, Throat: moist mucous membranes Cardiovascular: regular rate and rhythym, other (pacer RUE with no hematoma), No edema Respiratory: no respiratory distress Genitourinary: no bladder fullness Musculoskeletal: full muscle strength Neurologic: AAOx3, CN II-XII Intact Psychiatric: interacting appropriately ICD10 Worksheet Patient Problems: Problems Problem Status Onset EKG abnormality Acute Minor head injury Acute Neck muscle strain Acute Syncope Acute
[2017-04-28] MEDS ORDERED: LOSARTAN POTASSIUM 50 MG TAB PO SCH (09:30)
--- NOTE | 2017-04-28 10:36 | EPPROC ---
Electrophysiology Procedure Note: PROCEDURE PERFORMED: 1. Lead revision INDICATION: Atrial lead dislodgement PROCEDURE NOTE: Patient presented to the cardiac catheterization laboratory in a fasting, postabsorptive state. Moderate sedation administered . The left infraclavicular area was prepped and draped in the usual sterile fashion. Lidocaine plus bupivacaine was used for local anesthesia. Using a combination of blunt and sharp dissection and electrocautery, the dissection was carried down to the prepectoral fascia and the existing pacemaker pocket was opened. The pacemaker generator was disconnected from the leads. Sutures cut and atrial lead seperated. Stylet placed. Using usual technique, lead unscrewed and respositioned at a different site. Good numbers obtained. Lead sutured. Leads attached to generator. The pacemaker pocket was copiously irrigated with antibiotic solution. The pocket was again inspected for any bleeding. The leads were attached to the pacemaker securely. The pacemaker was inserted into the pocket and secured in place with a nonabsorbable suture. The pacemaker pocket was closed in 3 layers with absorbable monocryl sutures.. Appropriate dressing was applied. The patient left the cardiac catheterization laboratory in stable condition. Serial Numbers: 1. Device Biotronik Edora SN [id number] 2. Atrial Lead Biotronik Solia S53 SN [id number] 3. Ventricular Lead Biotronik Solia S60 SN [id number] Stimulation Thresholds & Impedance Measurements: 1. Atrial Lead 4.5mV, 0.8@0.4ms, 487Ohms 2. Ventricular Lead 7.7mV, 0.6@0.4ms, 682Ohms Sina Pacing Parameters 1. Pacing mode DDD CLS 2. Lower rate 60 3. Upper tracking rate 130 4. Upper sensor rate 130 Patient Problems: Problems Problem Status Onset EKG abnormality Acute Minor head injury Acute Neck muscle strain Acute Syncope Acute
--- NOTE | 2017-04-28 11:13 | GDS ---
[f rep st] DISCHARGE SUMMARY DISCHARGE DIAGNOSES: 1. Syncope. 2. Complete heart block. 3. Asthma. 4. Hypertension. PROCEDURE: Pacemaker placement. HISTORY OF PRESENT ILLNESS: A 71-year-old male with hypertension, presenting after an episode of syncope. He was at home, working on his computer, when he felt nauseated. He stood up and passed out. His found him and said he was unresponsive for 30-60 seconds. He denied any chest pain or shortness of breath prior to the episode. He had just finished a course of azithromycin for a sinus infection, but had otherwise been in his usual state of health. While here in the emergency room, he had a 10-second sinus pause on the monitor and recurrent syncope but did not require atropine or other interventions at that time. HOSPITAL COURSE: 1. Syncope: Secondary to complete heart block. He was evaluated by Dr. Delaney and underwent permanent pacemaker placement without complication. He was given strict care precautions and will follow up in their clinic. Normal LV function on echocardiogram. No evidence of ischemia. 2. Hypertension: Resume home medications. 3. Benign prostatic hypertrophy: Provided script for Flomax. DISPOSITION: Patient is stable to discharge home with his . FOLLOWUP: Pacemaker check, 05/04/2017, and then Dr. Delaney, 05/25/2017. /[id number]/MODL MTDD
[2017-04-28] MEDS ORDERED: LATANOPROST 0.005% 2.5 ML OPHT DROPS EACHEYE SCH (21:00)
--- NOTE | 2017-05-02 15:46 | PQFORM ---
PHYSICIAN QUERY FORM Needs Your Response This query form is being sent to you to assure this patient record is coded properly. Please respond to the question below: SITE PLANNER QUESTION: Dear Dr. Bro, In reviewing this patient medical record, it was noted in the 04/27 Hospitalist Progress Note patient had "displacement of the atrial lead," and was returned to the operating room on 04/28 for "atrial lead revision." After study, should the diagnosis of "Displacement of cardiac electrode lead" be included in the Discharge Summary? ____x_ Yes No Unable to determine Other more appropriate diagnosis (please specify) Thank you KATI Galloway HIM/Coding Dept. [phone] INSTRUCTIONS FOR RESPONSE: Answer question by clicking on the "Edit Document" button. Move cursor to area below the stars. When complete, hit "Save." Click on the "Sign" button, then click "Sign" again. Type in your PIN and hit "Enter." MTDD
== END 2017-04-28 11:03 | disposition home or self-care (01) | DRG 243 ==
LOC: CED 17:36 → CEDHOLD 19:13 → INTOOBSV 19:13 → F2N 22:10 → OBSVTOIN 04-27 14:56
PROVIDERS: ADMIT Internal Medicine; ATTEND Internal Medicine
PROC: 02H63MZ Insertion of Cardiac Lead into Right Atrium, Percutaneous Approach (ICD-10-PCS; principal; 2017-04-27)
PROC: 0JH606Z Insertion of Pacemaker, Dual Chamber into Chest Subcutaneous Tissue and Fascia, Open Approach (ICD-10-PCS; principal; 2017-04-27)
PROC: 02HK3MZ Insertion of Cardiac Lead into Right Ventricle, Percutaneous Approach (ICD-10-PCS; principal; 2017-04-27)
PROC: 02WA3MZ Revision of Cardiac Lead in Heart, Percutaneous Approach (ICD-10-PCS; 2017-04-28)
DX: I44.2 Atrioventricular block, complete (principal); T82.120A Displacement of cardiac electrode, initial encounter; J45.909 Unspecified asthma, uncomplicated; I10 Essential (primary) hypertension; N40.0 Benign prostatic hyperplasia without lower urinary tract symptoms; Z82.49 Family history of ischemic heart disease and other diseases of the circulatory system; S00.90XA Unspecified superficial injury of unspecified part of head, initial encounter; S16.1XXA Strain of muscle, fascia and tendon at neck level, initial encounter; W18.39XA Other fall on same level, initial encounter; Y92.019 Unspecified place in single-family (private) house as the place of occurrence of the external cause
CPT/HCPCS: 80048-PO; 81003-PO; 84484-PO; 85025-PO; 92523-GN; C1785; C1898; G0378; G9165-GN-CH; G9166-GN-CH; G9167-GN-CH; J0461; J0690; J1200; J1265; J2250; J2405; J2930; J3010; J3370; J7613; Q9967

== ENCOUNTER 2017-06-30 16:59 | Emergency (ER) | payer OTHER ==
[2017-06-30 17:10] VITALS: TEMP 97.9
--- NOTE | 2017-06-30 17:13 | EDPHY ---
H & P Stated Complaint: Pacemaker since mid April 2017;poss syncopal episode today Time Seen by Provider: 06/30/17 17:13 - Personal History Current Tetanus Diphtheria and Acellular Pertussis (TDAP): Yes Tetanus Vaccine Date: < 10 years - Medical/Surgical History Hx Asthma: Yes Hx Chronic Respiratory Disease: No Hx Diabetes: No Hx Cardiac Disease: Yes Hx Renal Disease: No Hx Cirrhosis: No Hx Alcoholism: No Hx HIV/AIDS: No Hx Splenectomy or Spleen Trauma: No Other PMH: HTN, ASTHMA, HERNIA REPAIR, glaucoma. pacemaker - Social History Smoking Status: Never smoked Constitutional: Initial Vital Signs Temperature (C) 36.6 C 06/30/17 17:05 Heart Rate 77 06/30/17 17:05 Respiratory Rate 16 06/30/17 17:05 Blood Pressure 122/88 H 06/30/17 17:05 O2 Sat (%) 92 06/30/17 17:05 O2 Delivery Mode Room Air Allergies/Adverse Reactions: bacitracin Allergy (Verified 06/30/17 17:07) cefazolin [From Anc] Allergy (Verified 06/30/17 17:07) iodine Allergy (Verified 06/30/17 17:07) contrast Allergy (Uncoded 04/27/17 09:37) Home Medications: Medication Instructions Recorded Albuterol [Proventil Inhaler HFA 2 puffs IH Q4H PRN 04/27/17 (*)] Fluticasone Hfa 110 Mcg [Flovent 1 puffs IH BID PRN 04/27/17 110 MCG Hfa MDI (*)] Latanoprost 1 drop EACHEYE HS 04/27/17 Losartan Potassium [Cozaar 50 mg 50 mg PO DAILY 04/27/17 (*)] Tamsulosin HCl [Flomax 0.4 MG (*)] 0.4 mg PO HS #30 cap 04/28/17 Ciprofloxacin [Cipro] 500 mg PO BID #60 tab 06/30/17 Doxycycline Hyclate [Vibramycin 100 mg PO BID #30 cap 06/30/17 100 MG (*)] Medical Decision Making ED Course/Re-evaluation: CHIEF COMPLAINT: Near syncopal episode HISTORY OF PRESENT ILLNESS: 71-year-old gentleman whose had a pacer placed last month. He was having heart block as the indication for pacer placement. He was on 100 mg of losartan daily anion episode about a week ago where he dropped his blood pressure and became near syncopal to almost passing out. He gets lightheaded and dizzy and diaphoretic briefly. That episode went away and his doctor dropped his losartan from 100 to 50 mg. He has also been started on Bactrim lately. There is literature that states that Bactrim can increase losartan levels. REVIEW OF SYSTEMS: A 10 point review of systems was performed and is negative with the exception of the elements mentioned in the history of present illness. PHYSICAL EXAM: HR, BP, O2 Sat, RR. Temp noted General Appearance: Alert, well hydrated, appropriate, and non-toxic appearing. Head: Atraumatic without scalp tenderness or obvious injury Eyes: Pupils equal, round, reactive to light and accommodation, EOMI, no trauma , no injection. Ears: Clear bilaterally, no perforation, normal landmarks Nose: Atraumatic, no rhinorrhea, clear. Throat: There is no erythema or exudates, no lesions, normal tonsils, mucus membranes moist. Neck: Supple, 2+ carotid upstroke, nontender, no lymphadenopathy. Respiratory: No retractions, no distress, no wheezes, and no accessory muscle use. Lungs are clear to auscultation bilaterally. Cardiovascular: Regular rate and rhythm, no murmurs, rubs, or gallops. Bilateral carotid, radial, dorsalis pedis, and posterior tibial pulses intact. Good capillary refill all extremities. Gastrointestinal: Abdomen is soft, nontender, non-distended, no masses, no rebound, no guarding, no peritoneal signs. Musculoskeletal: Normal active ROM of all extremities, atraumatic. Neurological: Alert, appropriate, and interactive. The patient has normal DTRs and non-focal cranial nerves, motor, sensory, and cerebellar exam. Skin: No rashes, good turgor, no nodules on palpation. Past medical history: Hypertension, dysrhythmia Past surgical history: Pacer placement Family history: Noncontributory Social history: , retired, does not abuse tobacco drugs or alcohol DIAGNOSTICS/PROCEDURES/CRITICAL CARE TIME: The 12 lead EKG was interpreted by myself. See hard copy and/or "tracemaster" electronic copy for interpretation. Atrial paced complexes rate of 74. DIFFERENTIAL DIAGNOSIS: The differential diagnosis for the patient's syncope included but was not limited to vasovagal syncope, arrhythmia, dehydration, cardiogenic causes, neurogenic causes, and blood loss. MEDICAL DECISION MAKING: This patient has had 2 syncopal episodes. 1 was on 100 mg of losartan the other was then 50 mg of losartan. This may be a dysrhythmia or something related to his pacemaker placement recently so I have called the pacemaker rep into interrogated. Additionally, it would not be impossible for the Bactrim to be increasing the losartan level in for this patient had a have much more of a blood pressure affect than expected. His current pressure here in the ER is 125/73 and he says that is fairly low for him even on the higher dose of losartan. He is asymptomatic now. Laboratory studies are pending also. Additionally this patient has a creatinine that is creeping up slightly from his prior hospitalization. This most likely is also secondary to the Bactrim. At the very least I am switching him from Bactrim to Keflex. Patient has allergy to cephalexin. Plan to prescribe Cipro so that I do not have a losartan interaction nor do I have risk of further kidney insufficiency. Patient additionally reports allergy to Cipro. Plan to prescribe Doxycycline. He is comfortable with this plan. - Data Points Laboratory Results: Laboratory Results 06/30/17 17:20 06/30/17 17:20 06/30/17 06/30/17 17:20 17:20 WBC 8.20 10^3/uL 10^3/uL (3.80-9.50) RBC 4.97 10^6/uL 10^6/uL (4.40-6.38) Hgb 15.2 g/dL g/dL (13.7-17.5) Hct 44.8 % % (40.0-51.0) MCV 90.1 fL fL (81.5-99.8) MCH 30.6 pg pg (27.9-34.1) MCHC 33.9 g/dL g/dL (32.4-36.7) RDW 12.7 % % (11.5-15.2) Plt Count 183 10^3/uL 10^3/uL (150-400) MPV 10.5 fL fL (8.7-11.7) Neut % (Auto) 71.7 % % (39.3-74.2) Lymph % (Auto) 16.5 % % (15.0-45.0) [place] % (Auto) 6.7 % % (4.5-13.0) Eos % (Auto) 4.0 % % (0.6-7.6) Baso % (Auto) 0.6 % % (0.3-1.7) Nucleat RBC Rel Count 0.0 % % (0.0-0.2) Absolute Neuts (auto) 5.88 10^3/uL 10^3/uL (1.70-6.50) Absolute Lymphs (auto) 1.35 10^3/uL 10^3/uL (1.00-3.00) Absolute Monos (auto) 0.55 10^3/uL 10^3/uL (0.30-0.80) Absolute Eos (auto) 0.33 10^3/uL 10^3/uL (0.03-0.40) Absolute Basos (auto) 0.05 10^3/uL 10^3/uL (0.02-0.10) Absolute Nucleated RBC 0.00 10^3/uL 10^3/uL (0-0.01) Immature Gran % 0.5 % % (0.0-1.1) Immature Gran # 0.04 10^3/uL 10^3/uL (0.00-0.10) Sodium 139 mEq/L mEq/L (135-145) Potassium 4.0 mEq/L mEq/L (3.5-5.2) Chloride 105 mEq/L mEq/L (97-110) Carbon Dioxide 25 mEq/l mEq/l (22-31) Anion Gap 9 mEq/L mEq/L (8-16) BUN 28 mg/dL H mg/dL (7-23) Creatinine 1.4 mg/dL H mg/dL (0.7-1.3) Estimated GFR 50 Glucose 107 mg/dL H mg/dL (70-100) Calcium 10.1 mg/dL mg/dL (8.5-10.4) Troponin I < 0.012 ng/mL ng/mL (0.000-0.034) Medications Given: Discontinued Medications Ciprofloxacin (Cipro) 500 mg PO EDNOW ONE PRN Reason: Protocol Stop: 06/30/17 18:47 Last Admin: 06/30/17 19:05 Dose: Not Given Departure - Departure Disposition: Home, Routine, Self-Care Clinical Impression: Hypotension due to medication, Elevated serum creatinine Condition: Good Instructions: Syncope (ED) Additional Instructions: 1. Stop taking Bactrim. 2. Take Doxycycline as prescribed. 3. Follow up with your welt insole channeler. 4. Return to the emergency department for recurrence of symptoms, chest pain, shortness of breath, or other worsening of condition. Referrals: Doreen Nino MD [Primary Care Provider] - As per Instructions Christopher Fairbanks MD [Medical Doctor] - As per Instructions Prescriptions: Ciprofloxacin [Cipro] 500 mg PO BID #60 tab Doxycycline Hyclate [Vibramycin 100 MG (*)] 100 mg PO BID #30 cap
--- NOTE | 2017-06-30 17:16 | CPEKG ---
Heart Rate: 74 RR Interval: 811 P-R Interval: 160 QRSD Interval: 88 QT Interval: 400 QTC Interval: 444 P Ovid: 47 QRS Ovid: 49 T Wave Ovid: -64 EKG Severity - ABNORMAL ECG - EKG Impression: ATRIAL-PACED COMPLEXES EKG Impression: PROBABLE LEFT ATRIAL ABNORMALITY Electronically Signed By: Alaina Barnhart 02-Jul-2017 00:44:58
[2017-06-30 17:29] LABS: PLATELET COUNT 183 10^3/uL (150-400)
[2017-06-30] MEDS ORDERED: CIPROFLOXACIN 500 MG TAB PO ONE (18:46)
[2017-06-30 19:18] VITALS: BP 128/84; PULSE 73; RESP 20; O2SAT 96
== END 2017-06-30 19:18 | disposition home or self-care (01) ==
DX: I95.2 Hypotension due to drugs (principal); T46.4X5A Adverse effect of angiotensin-converting-enzyme inhibitors, initial encounter; I10 Essential (primary) hypertension; J45.909 Unspecified asthma, uncomplicated; Z95.0 Presence of cardiac pacemaker

== ENCOUNTER → 2018-03-20 | Outpatient (CLI) | payer OTHER | LOC: FCPNEURO 21:00 | PROVIDERS: ATTEND Student in an Organized Health Care Education/Training Program | DX: G47.33 Obstructive sleep apnea (adult) (pediatric) (principal) ==